=== PATIENT | male | born 1950 | race Caucasian/White ===

== ENCOUNTER → 2018-12-26 | Outpatient (CLI) | payer MEDICARE | LOC: LABWHC1 13:43 | PROVIDERS: ATTEND Neurological Surgery | DX: Z01.812 Encounter for preprocedural laboratory examination (principal); M48.00 Spinal stenosis, site unspecified; M54.32 Sciatica, left side; M54.31 Sciatica, right side; M21.372 Foot drop, left foot; M21.371 Foot drop, right foot; M19.90 Unspecified osteoarthritis, unspecified site; M54.9 Dorsalgia, unspecified; H26.9 Unspecified cataract; G47.30 Sleep apnea, unspecified; E78.00 Pure hypercholesterolemia, unspecified; I10 Essential (primary) hypertension; E11.40 Type 2 diabetes mellitus with diabetic neuropathy, unspecified; Z79.01 Long term (current) use of anticoagulants | CPT/HCPCS: 36415; 86850; 86900; 86901 ==

== ENCOUNTER → 2020-09-26 | Outpatient (CLI) | payer MEDICARE ==
--- NOTE | 2020-09-26 08:09 | US ---
EXAMINATION TYPE: US carotid duplex BILAT DATE OF EXAM: 09/26/2020 COMPARISON: NONE CLINICAL HISTORY: R27.0 ataxia; I48.0 approximal atrial fibrillation. Nonsmoker EXAM MEASUREMENTS: RIGHT: Peak Systolic Velocity (PSV) cm/sec ----- Right CCA: 47.8 ----- Right ICA: 69.0 ----- Right ECA: 54.0 ICA/CCA ratio: 1.4 RIGHT: End Diastole cm/sec ----- Right CCA: 9.9 ----- Right ICA: 27.3 ----- Right ECA: 14.3 LEFT: Peak Systolic Velocity (PSV) cm/sec ----- Left CCA: 67.1 ----- Left ICA: 67.1 ----- Left ECA: 55.9 ICA/CCA ratio: 1.0 LEFT: End Diastole cm/sec ----- Left CCA: 21.7 ----- Left ICA: 24.9 ----- Left ECA: 11.8 VERTEBRALS (direction of flow): Right Vertebral: Antegrade Left Vertebral: Antegrade Rhythm: Normal Andrade scale images show mild peripheral plaque at carotid bulb level. Velocity measurements and ratios remain within normal limits in the visualized portion of both international manager al carotid arteries. IMPRESSION: No hemodynamically significant stenosis seen in either internal carotid artery. Criteria for Assigning % of Stenosis / Diameter reduction (Estimation based on the indirect measurements of the internal carotid artery velocities (ICA PSV). 1. Normal (no stenosis)=ICA PSV < 125 cm/s: ratio < 2.0: ICA EDV<40 cm/s. 2. Less than 50% stenosis=ICA PSV < 125 cm/s: ratio < 2.0: ICA EDV<40 cm/s. 3. 50 to 69% stenosis=ICA PSV of 125 to 230 cm/s: ration 2.0 ? 4.0: ICA EDV 40-100 cm/s. 4. Greater than 70% stenosis to near occlusion= ICA PSV > 230 cm/s: ratio > 4.0: ICA EDV > 100 cm/s. 5. Near occlusion= ICA PSV velocities may be low or undetectable: variable ratio and ICA EDV. 6. Total occlusion=unable to detect flow.
--- NOTE | 2020-09-26 10:00 | ECHOF ---
Referral Reason:I48.0 aproximal atrial fibrillation MEASUREMENTS -------- HEIGHT: 175.3 cm WEIGHT: 95.7 kg BP: RVIDd: 2.5 cm (< 3.3) IVSd: 1.1 cm (0.6 - 1.1) LVIDd: 4.7 cm (3.9 - 5.3) LVPWd: 1.1 cm (0.6 - 1.1) IVSs: 1.6 cm LVIDs: 2.8 cm LVPWs: 1.9 cm LAESV Index (A-L): 27.66 ml/m Ao Diam: 2.6 cm (2.0 - 3.7) AV Cusp: 1.8 cm (1.5 - 2.6) LA Diam: 3.9 cm (2.7 - 3.8) MV EXCURSION: 17.297 mm (> 18.000) MV EF SLOPE: 138 mm/s (70 - 150) EPSS: 0.8 cm MV E Sawyer: 0.63 m/s MV DecT: 169 ms MV A Sawyer: 0.70 m/s MV E/A Ratio: 0.90 RAP: 5.00 mmHg RVSP: 24.03 mmHg TAPSE: 27.87 mm FINDINGS -------- This was a technically good study. The left ventricular size is normal. Left ventricular wall thickness is normal. Overall left vent ricular systolic function is normal with, an EF between 55 - 60 %. The diastolic filling pattern is normal for the age of the patient 8.87. The right ventricle is normal in size. The left atrial size is normal. Normal LA size by volume 22+/-6 ml/m2. The right atrial size is normal. Interatrial and interventricular septum intact. The aortic valve is trileaflet and appears structurally normal. The mitral valve leaflets are mildly thickened. Mild mitral regurgitation is present. The tricuspid valve appears structurally normal. Mild tricuspid regurgitation present. Right vent ricular systolic pressure is normal at < 35 mmHg. Trace/mild (physiologic) pulmonic regurgitation. The aortic root size is normal. Normal inferior vena cava with normal inspiratory collapse consistent with estimated right atrial pre ssure of 5 mmHg. There is no pericardial effusion. CONCLUSIONS -------- 1. The left ventricular size is normal. 2. Left ventricular wall thickness is normal. 3. Overall left ventricular systolic function is normal with, an EF between 55 - 60 %. 4. The diastolic filling pattern is normal for the age of the patient 8.87 5. The mitral valve leaflets are mildly thickened. 6. Mild mitral regurgitation is present. 7. Mild tricuspid regurgitation present. 8. Trace/mild (physiologic) pulmonic regurgitation. 9. There is no pericardial effusion. BIOMEDICAL TECHNICIAN: Arlet Villareal RDCS
--- NOTE | 2020-09-26 11:12 | CT ---
EXAMINATION TYPE: CT brain wo/w con DATE OF EXAM: 09/26/2020 COMPARISON: None INDICATION: Ataxia, Proximal atrial fibrillation DLP: 2216.80 mGycm, Automated exposure control for dose reduction was used. CONTRAST: None CT of the brain is performed utilizing 3 mm thick sections through the posterior fossa and 3 mm thick sections through the remaining calvarium. Study is performed within 24 hours of arrival to the hosp [facility]. No abnormal hyperdensity is present to suggest an acute intracranial hemorrhage. No mass lesion is evident. No acute infarcts are evident. Minimal periventricular white matter hypodensity is present, likely on the basis of chronic white matter ischemic changes. Ventricles and sulci are appropriate for the patient age. Paranasal sinuses and mastoid air cells within the [id number] are clear. No abnormal enhancement is evident. IMPRESSIONS: 1. Normal pre and postcontrast CT Brain
== END | disposition home or self-care (01) ==
LOC: RADUSWWP 07:09
PROVIDERS: ATTEND Family Medicine
DX: I08.1 Rheumatic disorders of both mitral and tricuspid valves (principal); R27.0 Ataxia, unspecified
CPT/HCPCS: 93306; 82565; 84520; 93880; 70470; 36415; Q9967

== ENCOUNTER 2020-10-14 11:52 | Emergency (ER) | payer MEDICARE ==
[2020-10-14 12:03] VITALS: RESP 18; TEMP 98.6
--- NOTE | 2020-10-14 12:34 | XR ---
EXAMINATION TYPE: XR hand complete RT DATE OF EXAM: 10/14/2020 CLINICAL HISTORY: Pain after injury. TECHNIQUE: Frontal, lateral and oblique images of the right hand are obtained. COMPARISON: None. FINDINGS: There is no acute fracture/dislocation evident in the right hand. Moderate to severe multi level spurring and joint space loss involving PIP and DIP joints of several fingers along with MCP kenji ints. Some subluxation at the second and third DIP joints. Scattered subchondral cystic change. Mild to moderate diffuse soft tissue swelling with more focal moderate soft tissue swelling at some of the joint spaces of the fingers. There is subchondral cystic change and bony formation in the ulnar styl oid. There is marked narrowing possible ossific fusion of the capitate and hamate bones. There is mar ked narrowing of the scaphoid capitate articulation with joint space sclerosis. Moderate to severe sp urring and narrowing base of first metacarpal. Vascular calcification at the wrist level is present. IMPRESSION: There is no acute fracture or dislocation in the right hand.
--- NOTE | 2020-10-14 12:58 | ED ---
Upper Extremity HPI - General Chief Complaint: Extremity Injury, Upper Stated Complaint: hand injury Source: patient Mode of arrival: ambulatory Limitations: no limitations - History of Present Illness Initial Comments: 70-year-old male presenting today for chief complaint of hand injury. pt states he was hit by a skeet. 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 it tried to unjam a machine but it threw the skeet into his right side of chin. he states it bounced and hit his thumb. states noticed a small bump where it hit. denies redness, swelling. states he never noticed area before. denies lmitation in rom or sensation. pt denies throat, eye or other facial injuries. patient denies additional complaints. states he came for xr of thumb. - Related Data Allergies Allergy/AdvReac Type Severity Reaction Status Date / Time Penicillins Allergy Unknown Verified 10/14/20 12:03 Childhood Review of Systems ROS Statement: Those systems with pertinent positive or pertinent negative responses have been documented in the HPI. ROS Other: All systems not noted in ROS Statement are negative. Past Medical History Past Medical History: Diabetes Mellitus, Deep Vein Thrombosis (DVT), Hyperlipid emia, Hypertension History of Any Multi-Drug Resistant Organisms: None Reported Past Surgical History: Adenoidectomy, Appendectomy, Heart Catheterization, Tonsillectomy Additional Past Surgical History / Comment(s): laminectomy Past Psychological History: No Psychological Hx Reported Smoking Status: Never smoker Past Alcohol Use History: None Reported Past Drug Use History: None Reported General Exam - General Exam Comments Initial Comments: General: The patient is awake and alert, in no distress, and does not appear acutely ill. Eye: Pupils are equal, round and reactive to light, extra-ocular movements are intact. No nystagmus. There is normal conjunctiva bilaterally. No signs of icterus. Ears, nose, mouth and throat: There are moist mucous membranes and no oral lesions. Neck: The neck is supple, there is no tenderness or JVD. Cardiovascular: There is a regular rate and rhythm. No murmur, rub or gallop is appreciated. Respiratory: Lungs are clear to auscultation, respirations are non-labored, breath sounds are equal. No wheezes, stridor, rales, or rhonchi. Gastrointestinal: [Soft, non-distended, non-tender abdomen without masses or organomegaly noted. There is no rebound or guarding present. Musculoskeletal: No bruising of thumb, no swellinkg, small pea size hard lesion of thumb near MCP joint. Normal ROM, no tenderness. Strength 5/5. Sensation intact. Radial pulses equal bilaterally 2+. Neurological: A&O x 3. CN II-XII intact grossly, There are no obvious motor or sensory deficits. Coordination appears grossly intact. Speech is normal. Skin: Skin is warm and dry and no rashes. ecchymosis of the right side of chin. no laceration, no crepitus. Psychiatric: Cooperative, appropriate mood & affect, normal judgment. Limitations: no limitations Course Vital Signs 10/14/20 10/14/20 11:58 13:03 Temperature 98.6 F 98.6 F Pulse Rate 70 65 Respiratory 18 18 Rate Blood Pressure 135/70 138/72 O2 Sat by Pulse 99 98 Oximetry Medical Decision Making - Medical Decision Making XR (-). no fracture. refused imaging of chin. no lacerations. patient has no additional complaints. no snuffbox tenderness. pt discharged appearing well. Disposition Clinical Impression: Right hand pain, Traumatic ecchymosis of chin Disposition: HOME SELF-CARE Condition: Good Instructions (If sedation given, give patient instructions): Contusion in Adults (ED), Bone Bruise (ED) Additional Instructions: Please use medication as discussed. Please follow-up with family doctor in the next 2 days of symptoms have not improved. Please return to emergency room if the symptoms increase or worsen or for any other concerns. Is patient prescribed a controlled substance at d/c from ED?: No Referrals: Amarjit Alvarado DO [Primary Care Provider] - 1-2 days Time of Disposition: 12:56
[2020-10-14 13:04] VITALS: BP 138/72; PULSE 65
== END 2020-10-14 13:04 | disposition home or self-care (01) ==
LOC: EC 11:52
DX: M79.641 Pain in right hand (principal); S00.83XA Contusion of other part of head, initial encounter; L98.9 Disorder of the skin and subcutaneous tissue, unspecified; Z88.0 Allergy status to penicillin; Z90.49 Acquired absence of other specified parts of digestive tract; Z90.89 Acquired absence of other organs; Z95.5 Presence of coronary angioplasty implant and graft; W61.92XA Struck by other birds, initial encounter
CPT/HCPCS: 99283

== ENCOUNTER → 2020-12-25 | Outpatient (CLI) | payer MEDICARE ==
--- NOTE | 2020-12-26 07:19 | MR ---
EXAMINATION TYPE: MR lumbar spine wo/w con DATE OF EXAM: 12/25/2020 COMPARISON: NONE at this institution. HISTORY: LBP, RLE radiculopathy, prior surgery TECHNIQUE: Multiplanar, multisequence images of the lumbar spine is performed without and with IV contrast, util izing 9 mL intravenous Gadavist FINDINGS: Sagittal images of the lumbar spine show vertebral body heights to appear satisfactory. The re is grade 1 retrolisthesis L1 on L2, L2 on L3, L3 and L4. Subtle Grade 1 anterolisthesis L5 on S1. Multilevel disc desiccation with multilevel disc space narrowing. Moderate disc space narrowing L3-L4 through the L5-S1 levels . Advanced disc space narrowing L2-L3 level with heterogeneous metastatic e ndplate changes. Moderate multilevel anterior spurring greatest upper lumbar levels. The conus medull ash is normal in position and signal ending mid L1 level. Postsurgical change posteriorly from mid L 2 through superior S1 levels. Hemangioma involving L3 vertebra right aspect sagittal image 11 noted. Axial images at T12-L1 level show moderate broad disc bulge and mild facet arthropathy bilaterally. M inimal effacement anterior thecal sac. Patent bilateral neural foramina. Axial images at L1-L2 level show spondylolisthesis with [id number] facet degenerative changes a nd ligamentum flavum hypertrophy mildly effacing posterior lateral thecal sac. There is moderate broa d disc bulge mildly effacing the anterior thecal sac. Patent bilateral neural foramina. Axial images at L2-L3 level show spondylolisthesis with moderate facet degenerative changes bilateral ly. There is effacement of the right lateral thecal sac. There is effacement of anterior thecal sac f rom posterior bony projection. Posterior spinous process resection. Patent bilateral neural foramina. Suspect left-sided laminectomy defect with enhancing posterior scar tissue. Axial images at L3-L4 level show moderate to severe broad-based disc bulge and moderate to severe rig ht-sided facet arthropathy. There is spinous process resection and left-sided laminectomy defect with enhancing scar tissue. Right-sided lateral and posterior spinal canal effacement. Patent bilateral n eural foramina. Axial images at the L4-L5 level show left-sided laminectomy defect and spinous process resection but there is advanced facet arthropathy and moderate to advanced broad disc bulge. The most Prominent spi nal canal effacement or stenosis seen at this level axial image 8. Moderate bilateral neural foramina l narrowing noted. Axial images at the L5-S1 level show moderate to advanced facet arthropathy bilaterally. There is mil d broad disc bulge. There is mild bilateral neural foraminal narrowing. Spinal canal preserved. An exophytic 1.9 cm T2 hyperintense lesion posterior right kidney axial image 24 simple thin-walled c yst. IMPRESSION: Posterior postsurgical changes mid to lower lumbar spine. Multilevel spondylolisthesis an d degenerative changes as detailed above. Attention to the L4-L5 level where most prominent spinal ca nal effacement or stenosis is noted.
== END ==
LOC: RADMRIMAIN 18:33
PROVIDERS: ATTEND Family Medicine
DX: M47.26 Other spondylosis with radiculopathy, lumbar region (principal)
CPT/HCPCS: 72158

== ENCOUNTER → 2021-02-19 | Outpatient (CLI) | payer MEDICARE ==
[2021-02-19 11:05] LABS: INR 1.1 (<1.2); Partial Thromboplastin Time 27.4 sec (22.0-30.0); Prothrombin Time 11.5 sec (9.0-12.0)
[2021-02-19 11:08] LABS: Appearance,Urine Clear (Clear); Bilirubin,Urine Negative (Negative); Blood,Urine Negative (Negative); Color,Urine Yellow; Glucose,Urine (UA) 4+ (Negative); Ketones,Urine Negative (Negative); Leukocyte Esterase,Urine Negative (Negative); Nitrite,Urine Negative (Negative); PH, Urine 6.5 (5.0-8.0); Protein,Urine Negative (Negative); Specific Gravity,Urine 1.025 (1.001-1.035)
[2021-02-19 20:10] LABS: Basophils # (A) 0.05 X 10*3/uL (0.00-0.10); Basophils % (A) 0.7 %; Eosinophils # (A) 0.25 X 10*3/uL (0.04-0.35); Eosinophils % (A) 3.6 %; HCT 41.7 % (39.6-50.0); HGB 13.8 g/dL (13.0-17.0); Lymphocytes % (A) 25.6 %; MCH 33.2 pg (27.0-32.0); MCHC 33.1 g/dL (32.0-37.0); MCV 100.2 fL (80.0-97.0); Mean Platelet Volume 9.2 fL (9.5-12.2); Monocytes # (A) 0.53 X 10*3/uL (0.20-1.00); Monocytes % (A) 7.5 %; Neutrophils # (A) 4.37 X 10*3/uL (1.80-7.70); Neutrophils % (A) 62.3 %; Platelet Count 217 X 10*3/uL (140-440); RBC 4.16 X 10*6/uL (4.40-5.60); RDW 12.8 % (11.5-14.5); WBC 7.02 X 10*3/uL (4.50-10.00)
[2021-02-19 23:43] LABS: Hemoglobin A1C 5.1 % (4.0-6.0)
[2021-02-20 04:28] LABS: African American GFR (CKD) 77.3 (60.0-200.0); Albumin 4.4 g/dL (3.80-4.90); Albumin/Globulin Ratio 2.44 (1.60-3.17); Anion Gap 8.3 mmol/L (4.00-12.00); BUN/Creat Ratio 16.36 Ratio (12.00-20.00); Calcium 9.8 mg/dL (8.7-10.3); Carbon Dioxide 33.7 mmol/L (21.6-31.8); Globulin 1.8 g/dL (1.6-3.3); Non-African American GFR(CKD) 66.7 (60.0-200.0); Potassium 4.3 mmol/L (3.5-5.5); Total Bilirubin 1.1 mg/dL (0.3-1.2); Total Protein 6.2 g/dL (6.2-8.2)
== END | disposition home or self-care (01) ==
LOC: LABWHC1 10:10
PROVIDERS: ATTEND Neurological Surgery
DX: M54.16 Radiculopathy, lumbar region (principal)
CPT/HCPCS: 36415; 80053; 81003; 83036; 84134; 85025; 85610; 85730

== ENCOUNTER → 2022-08-28 | Outpatient (CLI) | payer MEDICARE ==
--- NOTE | 2022-08-28 13:35 | XR ---
EXAMINATION TYPE: XR chest 2V DATE OF EXAM: 08/28/2022 COMPARISON: NONE TECHNIQUE: PA and lateral views submitted. HISTORY: Shortness of breath FINDINGS: The lungs are clear and there is no pneumothorax, pleural effusion, or focal pneumonia. Heart size normal. No overt failure. Hypertrophic and degenerative changes of the spine. IMPRESSION: 1. No acute process.
== END | disposition home or self-care (01) ==
LOC: RADXRMAIN 13:19
PROVIDERS: ATTEND Family Medicine
DX: R06.02 Shortness of breath (principal)
CPT/HCPCS: 71046

== ENCOUNTER → 2022-10-29 | Outpatient (CLI) | payer MEDICARE ==
--- NOTE | 2022-10-29 18:12 | CA ---
Exercise Stress Test Report Name: Darrius Chamorro Exam Date: 10/29/2022 10:57 Exam Location: [facility] Stress Ht (in): 69 Wt (lb): 195 BSA: 2.04 Ordering Phys: Amarjit Alvarado DO Referring Phys: Amarjit Alvarado DO Technologist: Hernando Ribeiro Age: 72 Gender: M : 1950 Procedure CPT: Indications: R06.02 SHORTNESS OF BREATH ICD-10 Codes: Patient History: DIFFICULTY IN BREATHING, HTN, DIABETES, ELEVATED CHOLESTEROL LEVELS, CARDIAC CATH Medications: METFORMIN, HZTZ, WELBUTRIN, ZOLOFT, ZIAC, OMEPRAZOLE, ZOCOR, XARELTO, VIT D, TRAMADOL, STEGLATRO Meds past 24 hrs: Pretest Chest Pain: STRESS TEST Kuldip Protocol Exercise Duration (min:sec): 06:[address] Depressions (mm): Angina Score: Irwin Score: Resting HR (bpm): 73 Peak HR (bpm): 125 Resting BP (mmHg): 130 / 74 Peak BP (mmHg): 189 / 71 MPHR: 147 Target HR: 125 % MPHR: 85 METS: 9.2 Total Dose: Peak Dose: Atropine: Double Product: 84544 BP Response: Stress Termination: Stress Symptoms: Stress Summary: ECG ANALYSIS Resting ECG: Stress ECG: CONCLUSIONS Baseline heart is 60 beats a minute, Baseline blood pressure 130/74 maneuvers mercury The center EKG shows sinus rhythm normal NC narrow QRS Patient excisable protocol for 6 minutes 18 seconds achieving a peak heart rate of 125 beats a minute. Peak blood pressure 189/71 mmHg Occasional PVCs noted No ECG evidence for ischemia Impression average exercise capacity No ECG evidence for ischemia Dr. Ross Waterman MD (Electronically Signed) Final Date: 29 October 2022 18:11
== END | disposition home or self-care (01) ==
LOC: RADNMMAIN 10:32
PROVIDERS: ATTEND Family Medicine
DX: R06.02 Shortness of breath (principal)
CPT/HCPCS: 93017

== ENCOUNTER → 2023-09-08 | Outpatient (CLI) | payer MEDICARE ==
--- NOTE | 2023-09-08 09:58 | CA ---
Transthoracic Echo Report Name: Darrius Chamorro Age: 73 Gender: M : 1950 Exam Date: 09/08/2023 08:29 Exam Location: [facility] Echo Ht (in): 69 Wt (lb): 190 Ordering Physician: Amarjit Alvarado DO Attending/Referring Phys: Mandrel Maker Peri Vallecillo [facility] Procedure CPT: Indications: R07.89 other chest pain Cardiac Hx: Technical Quality: Fair Contrast 1: Total Dose (mL): Contrast 2: Total Dose (mL): MEASUREMENTS (Male / Female) Normal Values 2D ECHO LV Diastolic Diameter PLAX 4.6 cm 4.2 - 5.9 / 3.9 - 5.3 cm LV Systolic Diameter PLAX 3.1 cm IVS Diastolic Thickness 1.0 cm 0.6 - 1.0 / 0.6 - 0.9 cm LVPW Diastolic Thickness 0.9 cm 0.6 - 1.0 / 0.6 - 0.9 cm LV Relative Wall Thickness 0.4 LV Diastolic Volume MOD BP 91.1 cm??? 67 - 155 / 56 - 104 cm??? LV Systolic Volume MOD BP 51.4 cm??? 22 - 58 / 19 - 49 cm??? LV Ejection Fraction MOD BP 43.6 % >= 55 % LV Cardiac Index MOD BP 1249.1 cm???/min???m??? LV Diastolic Volume MOD 4C 94.1 cm??? LV Systolic Volume MOD 4C 49.5 cm??? LV Ejection Fraction MOD 4C 47.4 % LV Cardiac Index MOD 4C 1404.4 cm???/min???m??? LV Diastolic Length 4C 8.0 cm LV Systolic Length 4C 6.6 cm LV Diastolic Volume MOD 2C 86.8 cm??? LV Systolic Volume MOD 2C 52.4 cm??? LV Ejection Fraction MOD 2C 39.6 % LV Cardiac Index MOD 2C 1080.2 cm???/min???m??? LV Diastolic Length 2C 7.8 cm LV Systolic Length 2C 6.9 cm Ascending Aorta Diameter 3.5 cm M-MODE Aortic Root Diameter MM 3.0 cm LA Systolic Diameter MM 4.1 cm LA Ao Ratio MM 1.4 AV Cusp Separation MM 2.2 cm DOPPLER AV Peak Velocity 127.0 cm/s AV Peak Gradient 6.4 mmHg AV Mean Velocity 93.7 cm/s AV Mean Gradient 3.8 mmHg AV Velocity Time Integral 29.0 cm LVOT Peak Velocity 77.5 cm/s LVOT Peak Gradient 2.4 mmHg LVOT Velocity Time Integral 19.7 cm Mitral E Point Velocity 53.3 cm/s Mitral A Point Velocity 70.6 cm/s Mitral E to A Ratio 0.8 MV Deceleration Time 219.1 ms LV E' Lateral Velocity 8.4 cm/s Mitral E to LV E' Lateral Ratio 6.3 LV E' Septal Velocity 7.2 cm/s Mitral E to LV E' Septal Ratio 7.4 TR Peak Velocity 227.7 cm/s TR Peak Gradient 20.7 mmHg Right Atrial Pressure 3.0 mmHg Pulmonary Artery Systolic Pressu 23.7 mmHg Right Ventricular Systolic Press 23.7 mmHg FINDINGS Left Ventricle Left ventricular wall thickness normal. Left ventricular cavity size normal. Left ventricular ejection fraction is estimated at 40-45%. Moderately decreased left ventricular ejection fraction. Anterolateral wall appears hypokinetic. Right Ventricle Moderate right ventricular dilatation. Right Atrium Moderate right atrial dilatation. Left Atrium Moderate left atrial dilatation. Mitral Valve Mild mitral valve prolapse. Mild-moderate mitral regurgitation. Aortic Valve Trileaflet aortic valve. No aortic valve stenosis or regurgitation. Tricuspid Valve Structurally normal tricuspid valve. Trace tricuspid regurgitation. Pulmonic Valve Structurally normal pulmonic valve. Moderate pulmonic regurgitation. Pericardium No pericardial effusion. Aorta Normal size aortic root and proximal ascending aorta. CONCLUSIONS Mild LV systolic dysfunction with an ejection fraction of 40-45% Anteroseptal and anterolateral wall appear hypokinetic Mild to moderate mitral regurgitation Previewed by: Dr. Bg Osman MD (Electronically Signed) Final Date: 08 September 2023 09:57
--- NOTE | 2023-09-08 11:49 | CA ---
Exercise Stress Test Report Name: Darrius Chamorro Exam Date: 09/08/2023 09:02 Exam Location: [place] Stress Ht (in): 69 Wt (lb): 190 BSA: 2.02 Ordering Phys: Amarjit Alvarado DO Referring Phys: ALVARADO Technologist: Amarjit Yo Age: 73 Gender: M : 1950 Procedure CPT: Indications: R07.89 other chest pain ICD-10 Codes: Patient History: Shortness of breath Medications: Meds past 24 hrs: Pretest Chest Pain: STRESS TEST Kuldip Protocol Exercise Duration (min:sec): 06:[address] Depressions (mm): Angina Score: Irwin Score: Resting HR (bpm): 62 Peak HR (bpm): 125 Resting BP (mmHg): 132 / 69 Peak BP (mmHg): 183 / 72 MPHR: 146 Target HR: 124 % MPHR: 86 METS: 7.4 Total Dose: Peak Dose: Atropine: Double Product: 31538 BP Response: Stress Termination: Max exertion. Stress Symptoms: No chest pain or symptoms Stress Summary: ECG ANALYSIS Resting ECG: Normal sinus rhythm normal axis normal intervals Stress ECG: Patient exercised on Kuldip protocol for 6 minutes achieving 86% of predicted maximal heart rate without chest pain or diagnostic ST segment depression CONCLUSIONS Average exercise tolerance Negative stress test by EKG criteria Dr. Bg Osman MD (Electronically Signed) Final Date: 08 September 2023 11:48
== END | disposition home or self-care (01) ==
LOC: RADECHMAIN 08:08
PROVIDERS: ATTEND Family Medicine
DX: I34.0 Nonrheumatic mitral (valve) insufficiency (principal); I51.89 Other ill-defined heart diseases
CPT/HCPCS: 93017; 93306

== ENCOUNTER → 2023-12-28 | Outpatient (CLI) | payer MEDICARE ==
--- NOTE | 2023-12-29 05:20 | MR ---
EXAMINATION TYPE: MR shoulder LT wo con DATE OF EXAM: 12/28/2023 COMPARISON: None. HISTORY: Left shoulder pain for a few months with difficulty raising arm overhead. TECHNIQUE: Multiplanar, multisequence imaging of the left shoulder is performed without contrast. FINDINGS: Rotator Cuff: Full-thickness retracted tear of the supraspinatus tendon to the level of the distal cl avicle. Full thickness stump or traction of the infraspinatus tendon coronal image 23 more proximal t o the distal clavicle. Subscapularis tendon has wavy contour and surrounding fluid. Retracted tear is suspected as the long head of biceps is medial to the groove. Mild to moderate generalized muscular atrophy of the rotator cuff muscles. Acromioclavicular Joint: Inferior margin of the acromion is 8 mm superior displacement relative to th e inferior margin of the distal clavicle. There is moderate to severe narrowing with subchondral cyst ic change at this level. Mild spurring is seen. Glenohumeral Joint: High positioned humeral head suggesting rotator cuff instability is noted. Small- to-moderate sized joint effusion is present. Marked narrowing superiorly is noted. Labrum: Blunting superior labrum consistent with tear. Biceps Tendon: The long head of biceps is in normal location within bicipital groove. Bone marrow signal: Subchondral cystic change at the acromioclavicular joint. Other: No additional significant abnormality is appreciated. IMPRESSION: 1. Full-thickness retracted tears of supraspinatus and infraspinatus tendons. Likely full-thickness r etracted tear of subscapularis tendon. [id number] rotator cuff muscular atrophy. High positione d humeral head suggesting underlying instability. Advanced degenerative changes glenohumeral and acro mioclavicular joint. AC joint subluxation. Dislocated long head of biceps tendon and probable tear.
== END | disposition home or self-care (01) ==
LOC: RADMRIMAIN 20:00
PROVIDERS: ATTEND Orthopaedic Surgery
DX: M75.122 Complete rotator cuff tear or rupture of left shoulder, not specified as traumatic (principal); S43.005A Unspecified dislocation of left shoulder joint, initial encounter; M62.512 Muscle wasting and atrophy, not elsewhere classified, left shoulder; M19.012 Primary osteoarthritis, left shoulder; X58.XXXA Exposure to other specified factors, initial encounter

== ENCOUNTER → 2024-02-18 | Outpatient (CLI) | payer MEDICARE | END | disposition home or self-care (01) | LOC: LABPAT 11:46 | PROVIDERS: ATTEND Orthopaedic Surgery | DX: Z01.812 Encounter for preprocedural laboratory examination (principal); M75.122 Complete rotator cuff tear or rupture of left shoulder, not specified as traumatic; M12.812 Other specific arthropathies, not elsewhere classified, left shoulder; Z22.322 Carrier or suspected carrier of Methicillin resistant Staphylococcus aureus | CPT/HCPCS: 87070 ==

== ENCOUNTER → 2024-02-23 | Outpatient (CLI) | payer MEDICARE ==
[2024-02-23 13:41] LABS: African American GFR (CKD) 75 (>60 ml/min/1.73 sqM); Blood Urea Nitrogen 28 mg/dL (9-20); Non-African American GFR(CKD) 65 (>60 ml/min/1.73 sqM)
--- NOTE | 2024-02-23 14:55 | CT ---
EXAMINATION TYPE: CT abdomen pelvis w con DATE OF EXAM: 02/23/2024 COMPARISON: None HISTORY: abdominal pain, weight loss CT DLP: 1066.4 mGycm CONTRAST: CT scan of the abdomen and pelvis is performed with Oral Contrast and with IV Contrast, patient injec seven with 100 mL of Isovue 300. FINDINGS: LUNG BASES-: No visible nodule. No infiltrate. LIVER/GB: Calcified cholelithiasis. Mild hepatic steatosis. No space occupying hepatic lesion. Biliar y tree is of normal caliber. PANCREAS: No inflammation. No distinct mass. SPLEEN: No splenic enlargement. No lesion seen. ADRENALS: No nodule. No thickening. KIDNEYS/BLADDER: No hydronephrosis. No nephrolithiasis. 1.7 cm exophytic lesion posterior lower jalen e right kidney compatible with simple cysts. Urinary bladder grossly unremarkable. BOWEL: Normal appendix. Normal bowel caliber. No inflammation. GENITAL ORGANS: No gross abnormality. LYMPH NODES: No greater than 1cm abdominal or pelvic lymph nodes are appreciated. AORTA: No significant abnormality. OSSEOUS STRUCTURES: No significant abnormality is seen. OTHER: No significant additional abnormality is seen. IMPRESSION: 1. No significant abnormality to account for the patient's symptoms and abnormal weight loss. Correla te clinically. 2. Calcified cholelithiasis. 3. Mild hepatic steatosis.
[2024-02-23 19:12] LABS: Basophils # (A) 0.05 X 10*3/uL (0.00-0.10); Basophils % (A) 0.8 %; Eosinophils # (A) 0.51 X 10*3/uL (0.04-0.35); Eosinophils % (A) 7.8 %; HCT 35.2 % (39.6-50.0); HGB 12.1 g/dL (13.0-17.0); Lymphocytes % (A) 19.9 %; MCH 33.4 pg (27.0-32.0); MCHC 34.4 g/dL (32.0-37.0); MCV 97.2 FL (80.0-97.0); Mean Platelet Volume 8.8 FL (9.5-12.2); Monocytes # (A) 0.43 X 10*3/uL (0.20-1.00); Monocytes % (A) 6.6 %; NRBC Per 100 WBC 0 X 10*3/uL (0.00-0.01); Neutrophils # (A) 4.19 X 10*3/uL (1.80-7.70); Neutrophils % (A) 64.3 %; Platelet Count 200 X 10*3/uL (140-440); RBC 3.62 X 10*6/uL (4.40-5.60); RDW 13.2 % (11.5-14.5); WBC 6.52 X 10*3/uL (4.50-10.00)
[2024-02-23 23:56] LABS: % Iron Saturation 26.07 (15.00-50.00); Ferritin 55.4 ng/mL (22.0-322.0)
== END | disposition home or self-care (01) ==
LOC: RADCTMAIN 11:59
PROVIDERS: ATTEND Internal Medicine Gastroenterology
DX: K80.20 Calculus of gallbladder without cholecystitis without obstruction (principal); K76.0 Fatty (change of) liver, not elsewhere classified; R63.4 Abnormal weight loss
CPT/HCPCS: 82607; 82728; 82565; 82746; 83540; 83550; 84520; 85025; 74177; 36415; Q9967

== ENCOUNTER 2024-02-25 07:44 | Day surgery (SDC) | payer MEDICARE ==
[2024-02-21 15:03] VITALS: BMI 26.6
--- NOTE | 2024-02-24 08:33 | P.HPOR ---
History of Present Illness H&P Date: 02/24/24 Chief Complaint: Left shoulder pain and weakness The patient is a 73-year-old [id number] retired gentleman who presents with persistent/progressive left shoulder pain and weakness for the past year. He is having and with any attempted overhead use and at night. He notes aggressive weakness and inability to raise his arm over his head. He tried conservative measures with medications, home exercises, and injections. He notes daily pain that limits him. Review of Systems As per HPI Past Medical History Past Medical History: Diabetes Mellitus, Deep Vein Thrombosis (DVT), Hyperlipidemia, Hypertension History of Any Multi-Drug Resistant Organisms: None Reported Past Surgical History: Adenoidectomy, Appendectomy, Back Surgery, Heart Catheter ization, Tonsillectomy Additional Past Surgical History / Comment(s): laminectomy Past Anesthesia/Blood Transfusion Reactions: No Reported Reaction Past Psychological History: Anxiety, Depression Smoking Status: Never smoker Past Alcohol Use History: None Reported Past Drug Use History: None Reported - Past Family History Mother Family Medical History: No Reported History Medications and Allergies Home Medications Medication Instructions Recorded Confirmed Type Bisoprolol-Hctz 2.5-6.25 mg [Ziac 1 tab PO DAILY 02/21/24 02/21/24 History 2.5-6.25 MG] Brexpiprazole [Rexulti] 0.5 mg PO DAILY 02/21/24 02/21/24 History Cholecalciferol [Vitamin D3 (25 75 mcg PO Q7D 02/21/24 02/21/24 History Mcg = 1000 Iu)] Meloxicam [Mobic] 0 mg PO DIRECTED PRN 02/21/24 02/21/24 History Omeprazole [PriLOSEC] 20 mg PO AC-BRKFST 02/21/24 02/21/24 History Rivaroxaban [Xarelto] 20 mg PO DAILY 02/21/24 02/21/24 History Sertraline [Zoloft] 150 mg PO DAILY 02/21/24 02/21/24 History Simvastatin [Zocor] 20 mg PO HS 02/21/24 02/21/24 History buPROPion XL [Wellbutrin XL] 300 mg PO DAILY 02/21/24 02/21/24 History hydroCHLOROthiazide 25 mg PO DAILY 02/21/24 02/21/24 History metFORMIN HCL 500 mg PO BID 02/21/24 02/21/24 History rOPINIRole HCL [Requip] 3 mg PO HS 02/21/24 02/21/24 History Allergies Allergy/AdvReac Type Severity Reaction Status Date / Time Penicillins Allergy Unknown Verified 02/21/24 14:27 Childhood Physical Examination - Shoulder left Appearance: effusion Tenderness with palpation: anterior, superior, bicipital groove Pain: with abduction, with forward flexion ROM: forward flexion: 100 degrees ROM: internal rotation: lower lumbar ROM: external rotation: 10 degrees Strength: abduction: 3/5 Strength: external rotation: 3/5 Tests: internal impingement tests: positive, external impingment tests: positive Results The patient is a well-nourished male aproximately 5 foot 9, 180 pounds of mesomorphic habitus. HEENT exam is nonfocal, neck supple. He's tender about the left shoulder anterior subacromial space. Moderate crepitus is noted. Fleming, Neer sign, and speed tests are positive. Passive forward elevation is 145. His distal neurovascular exam appears intact in the left upper extremity. - Diagnostic results Shoulder MRI: image reviewed (MRI of the left shoulder shows evidence of a massive rotator cuff tear with significant retraction and muscular atrophy. Significant glenohumeral joint degenerative changes are noted.) Assessment and Plan Assessment: Left rotator cuff arthropathy History of DVTs Plan: I talked to the patient at length regarding his condition along with treatment options. At this point he is quite symptomatic and limited because of pain and weakness related to his left rotator cuff arthropathy. After a thorough discussion he opts to proceed with surgery. We'll plan to proceed with left reverse total shoulder arthroplasty. We will reinstitute his Xarelto postoperatively. Risks and benefits were discussed at length in layman's terms.
[~2024-02-25 07:44] MED LIST: HYDROmorphone 0.5 MG/0.5 ML SYRINGE IVP PRN; TRANEXAMIC 1,000 MG/100ML-NACL 1,000 MG in SALINE 1 100ML.BAG IVPB PRN
[2024-02-25] MEDS: ACETAMINOPHEN TAB 500 MG TAB PO PRN (08:30)
[2024-02-25] MEDS: MELOXICAM 7.5 MG TAB PO PRN (08:30)
[2024-02-25] MEDS: LACTATED RINGERS 1,000 ML IV SCH (08:45)
[2024-02-25] MEDS: ONDANSETRON 4 MG/2 ML VIAL IVP ONE (08:46)
[2024-02-25] MEDS: DEXAMETHASONE SOD PHOSPHATE 4 MG/ML 1 ML VIAL IV ONE (08:46)
[2024-02-25 08:57] LABS: Glucose,Whole Blood 182 mg/dL (70-110)
[2024-02-25] MEDS: fentaNYL (PF) 50 MCG/ML 2 ML AMP IVP ONE (09:05)
[2024-02-25] MEDS: MIDAZOLAM 2 MG/2 ML VIAL IVP ONE (09:05)
[2024-02-25] MEDS ORDERED: MIDAZOLAM 2 MG/2 ML VIAL ONE (09:40)
[2024-02-25] MEDS ORDERED: ROPIVACAINE 5 MG/ML 30 ML VIAL ONE (09:40)
[2024-02-25] MEDS ORDERED: PROPOFOL 10 MG/ML 20 ML VIAL IV ONE (09:40)
[2024-02-25] MEDS ORDERED: SUCCINYLCHOLINE CHLORIDE 200 MG/10 ML VIAL IV ONE (09:40)
[2024-02-25] MEDS ORDERED: GLYCOPYRROLATE 0.2 MG/ML 2 ML VIAL ONE (09:40)
[2024-02-25] MEDS ORDERED: NEOSTIGMINE 1 MG/ML 10 ML VIAL ONE (09:40)
[2024-02-25] MEDS ORDERED: WATER FOR INJECTION, STERILE 10 ML VIAL IV ONE (09:40)
[2024-02-25] MEDS ORDERED: LIDOCAINE 1% INJ 10MG/ML (20 ML MDV) ONE (09:40)
[2024-02-25] MEDS ORDERED: TRANEXAMIC 1,000 MG/100ML-NACL PREMIX BAG ONE (09:40)
[2024-02-25] MEDS ORDERED: ePHEDrine 50 MG/ML 1 ML VIAL ONE (09:40)
[2024-02-25] MEDS ORDERED: PHENYLEPHRINE 10 MG/ML VIAL ONE (09:40)
[2024-02-25] MEDS ORDERED: ROCURONIUM 10 MG/ML (5 ML VIAL) IV ONE (09:40)
--- NOTE | 2024-02-25 09:48 | P.ANPRN ---
Procedure Note - Anesthesia - Nerve Block Performed Left Interscalene Single Time Out Performed: Yes ([id number]) Date of Procedure: 02/25/24 Procedure Start Time: : Procedure Stop Time: : Location of Patient: PreOp Indication: Acute Post-Operative Pain, Requested by Surgeon Specifically requested for management of pain by : Baron Hall Sedation Type: Sedate with meaningful contact maintained Preparation: Sterile Prep Position: Supine Catheter: None Needle Types: Pajunk Needle Gauge: 21 Ultrasound used to visualize needle placement: Yes Ultrasound used to observe medication spread: Yes Injectate: 0.5% Ropivacaine (see comment for volume) (30cc) Blood Aspirated: No Pain Paresthesia on Injection Noted: No Resistance on Injection: Normal Image Stored and Saved: Yes Events: Uneventful and Well Tolerated
[2024-02-25] MEDS: ceFAZolin 1,000 MG in SODIUM CHLORIDE 0.9% 1,000 ML IRRIGATION ONE (10:18)
[2024-02-25] MEDS: LACTATED RINGERS 1,000 ML IV ONE (10:33)
[2024-02-25] MEDS ORDERED: hydrOXYzine pamoate 25 MG CAP PO PRN (11:29)
[2024-02-25] MEDS ORDERED: HYDROmorphone 0.5 MG/0.5 ML SYRINGE IVP PRN ×2 (11:29)
[2024-02-25] MEDS ORDERED: SENNOSIDES-DOCUSATE SODIUM 1 EACH TAB PO PRN (11:29)
--- NOTE | 2024-02-25 11:48 | P.OP ---
Date of Procedure: 02/25/24 Preoperative Diagnosis: Left rotator cuff arthropathy/chronic retracted rotator cuff tear Postoperative Diagnosis: Same Procedure(s) Performed: Left reverse total shoulder arthroplasty Implants: Depuy Delta Xtend size 10 press-fit humeral stem, size 10 body, 36+12 articular surface, 36 mm standard glenosphere with standard baseplate. Anesthesia: mahesh QUINTERO Surgeon: Baron Hall Wood Inspector #1: Bryson Mckeon Estimated Blood Loss (ml): 150 Pathology: none sent Condition: stable Disposition: PACU Indications for Procedure: The patient is a 74-year-old male who presents with progressive left shoulder pain and weakness despite previous conservative measures. Clinically and by MRI he was noted to have significant rotator cuff deficiency. A discussion of the risks and benefits of operative intervention versus continued conservative measures was made with the patient. He opted to proceed with surgery. Operative risks include infection, neurovascular injury, development of blood clots, fracture, instability, possible component loosening/failure and need for subsequent procedures was discussed. Informed consent was obtained. Operative Findings: As below Description of Procedure: The patient was brought to the operating room, and after induction of general anesthesia was placed in a beachchair position. The bony prominences were appropriately padded. I examined the left shoulder. There was full passive forward elevation and external rotation. The left upper extremity was prepped and draped in normal fashion. The bony outlines the coracoid process, distal clavicle, and acromion were outlined with a skin marker. A pulse centimeter deltopectoral incision was made lateral to the coracoid process. Skin was incised sharply. Subcutaneous tissues were divided bluntly. Electrocautery was used for hemostasis. The cephalic vein was identified and gently retracted laterally with the deltoid. The deltopectoral was bluntly developed. Subdeltoid adhesions were then released. The self-retaining retractor was placed. The conjoined tendon was retracted medially and the deltoid laterally. The biceps was identified. Its sheath was opened. A biceps tenotomy was performed along the remaining tendon did retract distally. The subscapularis was peeled off the lesser tuberosity and tagged. The supraspinatus and infraspinatus as well as the teres minor were previously ruptured and retracted. The head was then exposed. The shoulder was dislocated. A starting hole was made in line with the humeral shaft. The canal was reamed by hand up to size 10. There was good distal chatter. The cutting guide was then placed. I planned on 20 of retroversion. The humeral head cut was then made. The bone was removed in one fragment. Residual inferomedial osteophytes were removed flush with the [place] cortical bone. Attention was then paid towards preparing the glenoid. An anterior and posterior retractors placed. The labrum was released from the 6-12 o'clock position. Remaining biceps was removed as well. A guidepin was placed in the inferior aspect of the glenoid with the guide slightly tilting inferior. The reamer was used down to a bleeding bony surface. The central peg hole was drilled. The standard baseplate was inserted with good purchase. Inferior, superior, and posterior locking screws the appropriate length were placed. Good purchase was obtained. The 36 mm glenosphere was inserted over a guidewire. This was fully seated. Care was taken to avoid any soft tissue interposition. Attention was then paid towards preparing the proximal humerus. The appropriate broach was placed and 20 of retroversion and was fully seated. An eccentric size 2 epiphyseal reamer was utilized. A size 10 stem with a size 10 body was placed and 20 of retroversion. Trial reduction was obtained with a 36 mm + 12 articular surface. The shoulder was taken through range of motion. The shoulder was felt to be stable in flexion and extension with internal and external rotation. I felt there was adequate sabianism of soft tissue tension judging off the conjoined tendon. The shoulder was gently dislocated. The trial components were then removed. The final size 10 press-fit stem along with a size 10 body was fully seated. There was good rotational stability. The 36 mm + 12 articular surface was impacted. The shoulder again was gently reduced and taken through range of motion. Again it was felt to be stable in all planes. Pulsatile lavage was utilized. The subscapularis was a attached to the lesser tuberosity with #2 Ethibond suture. The deltopectoral interval was closed with interrupted 2-0 Vicryl sutures. The skin was reapproximated with 3-0 subcuticular Prolene suture. Steri-Strips were applied. A sterile dressing was applied. A sling was placed. The patient was awoken from general anesthesia and transferred to recovery room in good condition. Blood loss was estimated at 150 mL. No complications were incurred. Sponge and needle counts were correct at the end the case. Bryson OSORIO assisted during the major components of the case to include exposure, glenoid and humeral preparation, implantation, and closure.
[2024-02-25 11:59] LABS: Glucose,Whole Blood 202 mg/dL (70-110)
--- NOTE | 2024-02-25 12:10 | XR ---
EXAMINATION TYPE: XR shoulder limited LT DATE OF EXAM: 02/25/2024 11:32 AM CLINICAL INDICATION:Male, 74 years old with history of s/p reverse left total shoulder arthroplasty; [facility] COMPARISON: None TECHNIQUE: XR shoulder limited LT; examined in AP, internally rotated and scapular Y projections. FINDINGS: Shoulder arthroplasty with hardware intact. Subcutaneous lucencies compatible with recent surgery. No evidence for fracture. Hardware appears in tact The remaining portions of the visualized chest are unremarkable. IMPRESSION: 1. No acute osseous pathology. 2. Shoulder arthroplasty changes with hardware intact.
[2024-02-25] MEDS: INSULIN ASPART (NovoLOG) 100 UNIT/ML VIAL SQ ONE (12:15)
[2024-02-25 16:30] LABS: Glucose,Whole Blood 206 mg/dL (70-110)
[2024-02-25 17:31] LABS: Basophils % (A) 0 %; Eosinophils % (A) 0 %; HCT 34.1 % (39.0-53.0); HGB 11.5 gm/dL (13.0-17.5); Lymphocytes # (A) 0.4 k/uL (1.0-4.8); Lymphocytes % (A) 4 %; MCH 33.4 pg (25.0-35.0); MCHC 33.7 g/dL (31.0-37.0); Monocytes # (A) 0.2 k/uL (0-1.0); Monocytes % (A) 2 %; Neutrophils # (A) 8.6 k/uL (1.3-7.7); Neutrophils % (A) 93 %; Platelet Count 190 k/uL (150-450); RBC 3.44 m/uL (4.30-5.90); RDW 13.1 % (11.5-15.5); WBC 9.3 k/uL (3.8-10.6)
[2024-02-25] MEDS: metFORMIN 500 MG TAB PO SCH (20:20)
[2024-02-25] MEDS: ATORVASTATIN 10 MG TAB PO SCH (20:20)
[2024-02-25 20:23] LABS: Glucose,Whole Blood 284 mg/dL (70-110)
[2024-02-26] MEDS: HYDROcodone/APAP 5-325MG 1 EACH TAB PO PRN ×2 (01:37→06:58)
[2024-02-26 06:11] LABS: Glucose,Whole Blood 155 mg/dL (70-110)
[2024-02-26] MEDS: PANTOPRAZOLE 40 MG TABLET PO SCH (06:59)
[2024-02-26 07:56] VITALS: BP 109/54; PULSE 72; RESP 16; TEMP 97.4
[2024-02-26] MEDS ORDERED: NON FORMULARY DRUG (Brexpiprazole [Rexulti] 0.5 MG Tablet) PO SCH (09:00)
--- NOTE | 2024-02-26 09:33 | P.DS ---
Providers Date of admission: 02/25/2024 Expected date of discharge: 02/26/24 Attending physician: Baron Hall Consults: 02/25/24 11:29 Consult Physician Routine Consulting Provider: Breezy Gaviria Consult Reason/Comments: Medical management status post reverse left total shoulder arthroplasty Do you want consulting provider notified?: Yes Primary care physician: Mclean Hospital Course: Date of admission: 02/25/2024 Date of discharge: 02/26/2024 Admission diagnosis: Left rotator cuff arthropathy/chronic retracted rotator cuff tear Discharge diagnosis: Same Attending physician: Dr. Hall Surgical procedures: Reverse left total shoulder arthroplasty Brief history: Patient is a 74-year-old male with a history of Left rotator cuff arthropathy/chronic retracted rotator cuff tear. At this point patient has failed conservative treatment measures and has opted to proceed with a elective reverse left total shoulder arthroplasty. Hospital course: Details of patient's surgery can be found in operative report. Patient tolerated the procedure well and was subsequently transported to orthopedic floor. Patient's orthopeidc and medical care was provided daily. Patient had daily laboratory tests performed for evaluation of overall blood counts. Patient had daily physical therapy to include strengthening range of mo tion as well as education with walker ambulation. Patient was treated with Xarelto for their postoperative DVT prophylaxis during their inpatient stay. Patient was noted to have a relatively uneventful postoperative course. Patient reported satisfactory pain control with oral pain medications by postoperative day 1. Patient showed satisfactory progress with physical therapy. Patient moved steadily through the program and had no difficulty meeting the goals by postoperative day 1. Given patient's otherwise satisfactory course and having met physical therapy goals, plan is to discharge patient home on postoperative day 1. Discharge condition/disposition: Patient will be discharged home in stable condition. Discharge medications: Instructions are given on resumption of patient's normal daily medications per primary care recommendation, in addition patient will be prescribed [place]; senna; Flomax; resume Xarelto at home. Orthopedic Discharge Instructions: 1. Wound care and infection precautions, keep incision dry and covered while showering, no lotions, creams, moisturizers. No soaking, pools, hot tubs. Do not scrub over incision. 2. Non-weight bearing left upper extremity. 3. Ice when necessary. Do not exceed 20 minutes per hour with ice pack. 4. Utilize sling to left upper extremity until seen at first follow up appointment. 5. Pain meds and anticoagulants per prescription. 6. Pain medication has potential to cause constipation. Increase oral fluid and fiber intake. Contact primary care provider if you have not had a bowel movement within 48 hours after discharge. 7. No anti-inflammatory medication until discussed at first post operative visit, this including Motrin, Aleve, Mobic, Diclofenac. 8. Follow up in office at 2 weeks postop with Dean Ulloa PA-C / Bryson Mckeon PA-C 9. Follow up with your primary care doctor 7-10 days after discharge. 10. Contact [facility] with any questions, . Keep incision clean, dry, intact. While showering, cover incision with Saran wrap. Keep steri-strips on until follow-up appointment in office in 2 weeks. Assessment: Left rotator cuff arthropathy/chronic retracted rotator cuff tear Procedures: Reverse left total shoulder arthroplasty Patient Condition at Discharge: Good Plan - Discharge Summary Discharge Rx Participant: No New Discharge Prescriptions: New Tamsulosin HCl [Flomax] 0.4 mg PO DAILY #10 capsule Sennosides/Docusate Sodium [Senna Plus 8.6-50 mg Softgel] 1 each PO DAILY #20 capsule HYDROcodone/APAP 5-325MG [[place] 5-325] 1 tab PO Q6HR PRN #28 tab PRN Reason: Pain Continue Rivaroxaban [Xarelto] 20 mg PO DAILY No Action Cholecalciferol [Vitamin D3 (25 Mcg = 1000 Iu)] 75 mcg PO Q7D Simvastatin [Zocor] 20 mg PO HS Omeprazole [PriLOSEC] 20 mg PO AC-BRKFST Bisoprolol-Hctz 2.5-6.25 mg [Ziac 2.5-6.25 MG] 1 tab PO DAILY metFORMIN HCL 500 mg PO BID hydroCHLOROthiazide 25 mg PO DAILY buPROPion XL [Wellbutrin XL] 300 mg PO DAILY Meloxicam [Mobic] 0 mg PO DIRECTED PRN PRN Reason: Pain Brexpiprazole [Rexulti] 0.5 mg PO DAILY rOPINIRole HCL [Requip] 3 mg PO HS Sertraline [Zoloft] 150 mg PO DAILY Discharge Medication List Bisoprolol-Hctz 2.5-6.25 mg [Ziac 2.5-6.25 MG] 1 tab PO DAILY 02/21/24 [History] Brexpiprazole [Rexulti] 0.5 mg PO DAILY 02/21/24 [History] Cholecalciferol [Vitamin D3 (25 Mcg = 1000 Iu)] 75 mcg PO Q7D 02/21/24 [History] Meloxicam [Mobic] 0 mg PO DIRECTED PRN 02/21/24 [History] Omeprazole [PriLOSEC] 20 mg PO AC-BRKFST 02/21/24 [History] Rivaroxaban [Xarelto] 20 mg PO DAILY 02/21/24 [History] Sertraline [Zoloft] 150 mg PO DAILY 02/21/24 [History] Simvastatin [Zocor] 20 mg PO HS 02/21/24 [History] buPROPion XL [Wellbutrin XL] 300 mg PO DAILY 02/21/24 [History] hydroCHLOROthiazide 25 mg PO DAILY 02/21/24 [History] metFORMIN HCL 500 mg PO BID 02/21/24 [History] rOPINIRole HCL [Requip] 3 mg PO HS 02/21/24 [History] HYDROcodone/APAP 5-325MG [[place] 5-325] 1 tab PO Q6HR PRN #28 tab 02/26/24 [Rx] Sennosides/Docusate Sodium [Senna Plus 8.6-50 mg Softgel] 1 each PO DAILY #20 capsule 02/26/24 [Rx] Tamsulosin HCl [Flomax] 0.4 mg PO DAILY #10 capsule 02/26/24 [Rx] Follow up Appointment(s)/Referral(s): Bryson Mckeon, MAYDA [PHYSICIAN FABRIC INSPECTOR] - 2 Weeks Activity/Diet/Wound Care/Special Instructions: Orthopedic Discharge Instructions: 1. Wound care and infection precautions, keep incision dry and covered while showering, no lotions, creams, moisturizers. No soaking, pools, hot tubs. Do not scrub over incision. 2. Non-weight bearing left upper extremity. 3. Ice when necessary. Do not exceed 20 minutes per hour with ice pack. 4. Utilize sling to left upper extremity until seen at first follow up appointment. 5. Pain meds and anticoagulants per prescription. 6. Pain medication has potential to cause constipation. Increase oral fluid and fiber intake. Contact primary care provider if you have not had a bowel movement within 48 hours after discharge. 7. No anti-inflammatory medication until discussed at first post operative visit, this including Motrin, Aleve, Mobic, Diclofenac. 8. Follow up in office at 2 weeks postop with Dean Ulloa PA-C / Bryson Mckeon PA-C 9. Follow up with your primary care doctor 7-10 days after discharge. 10. Contact [facility] with any questions, . Keep incision clean, dry, intact. While showering, cover incision with Saran wrap. Keep steri-strips on until follow-up appointment in office in 2 weeks. Discharge Disposition: HOME SELF-CARE
--- NOTE | 2024-02-26 09:37 | P.PN ---
Subjective Progress Note Date: 02/26/24 Principal diagnosis: Left rotator cuff arthropathy/chronic retracted rotator cuff tear Patient was seen at bedside this morning lying; position with dressing present over left shoulder and sling present to the left upper extremity. was present during encounter. Johnston was in place. Patient says he is looking forward to going home later today. Patient says he has urinated without the Johnston however nursing put a Johnston in earlier this morning. Patient says the pain has been under control. Patient says his will be able to help him out at home. Patient says he has not had a bowel yet, however, patient says he has been passing gas. Patient denies chest pain, fever, shortness of breath, nausea, vomiting, change in vision, loss of bowel/bladder control. Objective - Vital Signs Vital signs: Vital Signs Temp 97.4 F L 02/26/24 07:35 Pulse 72 02/26/24 07:35 Resp 16 02/26/24 07:35 BP 109/54 02/26/24 07:35 Pulse Ox 97 02/26/24 07:35 FiO2 Intake & Output 02/25/24 02/26/24 02/26/24 18:59 06:59 18:59 Intake Total 1751 Output Total 1550 950 Balance 201 -950 Weight 84.2 kg Intake: IV 1751 Output: Urine 1400 950 Straight 700 Estimated Blood Loss 150 Other: # Voids 2 - Exam Left shoulder: Incision is clean, dry, and intact. Sling present to left upper extremity. The bulky dressing is in good condition. There is minimal soft tissue swelling and ecchymosis surrounding the medial and lateral aspects of the incision. Calf is soft, no tenderness with palpation. Plantar flexion, dorsiflexion, EHL, FHL are intact. Sensory exam to light touch throughout the extremity is intact, dorsal pedis pulses 2+. - Labs CBC & Chem 7: 02/25/24 16:55 Labs: Abnormal Lab Results - Last 24 Hours (Table) 02/25/24 02/25/24 02/25/24 Range/Units 11:57 16:29 16:55 RBC 3.44 L (4.30-5.90) m/uL Hgb 11.5 L (13.0-17.5) gm/dL Hct 34.1 L (39.0-53.0) % Neutrophils # 8.6 H (1.3-7.7) k/uL Lymphocytes # 0.4 L (1.0-4.8) k/uL POC Glucose (mg/dL) 202 H 206 H (70-110) mg/dL 02/25/24 02/26/24 Range/Units 20:21 06:06 RBC (4.30-5.90) m/uL Hgb (13.0-17.5) gm/dL Hct (39.0-53.0) % Neutrophils # (1.3-7.7) k/uL Lymphocytes # (1.0-4.8) k/uL POC Glucose (mg/dL) 284 H 155 H (70-110) mg/dL Assessment and Plan Assessment: 1. Left rotator cuff arthropathy/chronic retracted rotator cuff tear -Postop day 1 status post reverse left total shoulder arthroplasty Plan: 1. Left rotator cuff arthropathy/chronic retracted rotator cuff tear -reverse left total shoulder arthroplasty performed yesterday, 02/25/2024. Patient stable at bedside this morning. Pain medication as needed. Nonweightbearing to the left upper extremity. Maintain sling and left upper extremity at all times. Sending home with Flomax. discharge home today 2. Appreciate medical management 3. Pain management -[place] 4. DVT prophylaxis -Xarelto 5. GI prophylaxis -senna 6. PT/OT -nonweightbearing left upper extremity. Maintain in sling. Okay to flex and extend left wrist and elbow. 7. Encourage incentive spirometer use 8. Discharge planning -home today Time with Patient: Less than 30
--- NOTE | 2024-02-26 10:24 | P.CONS ---
History of Present Illness - Reason for Consult Consult date: 02/26/24 Past Medical History Past Medical History: Diabetes Mellitus, Deep Vein Thrombosis (DVT), Hyperlipidemia, Hypertension History of Any Multi-Drug Resistant Organisms: None Reported Past Surgical History: Adenoidectomy, Appendectomy, Back Surgery, Heart Catheter ization, Tonsillectomy Additional Past Surgical History / Comment(s): laminectomy Past Anesthesia/Blood Transfusion Reactions: No Reported Reaction Past Psychological History: Anxiety, Depression Smoking Status: Never smoker Past Alcohol Use History: None Reported Past Drug Use History: None Reported - Past Family History Mother Family Medical History: No Reported History Medications and Allergies Home Medications Medication Instructions Recorded Confirmed Type Bisoprolol-Hctz 2.5-6.25 mg [Ziac 1 tab PO DAILY 02/21/24 02/25/24 History 2.5-6.25 MG] Brexpiprazole [Rexulti] 0.5 mg PO DAILY 02/21/24 02/25/24 History Cholecalciferol [Vitamin D3 (25 75 mcg PO Q7D 02/21/24 02/25/24 History Mcg = 1000 Iu)] Meloxicam [Mobic] 0 mg PO DIRECTED PRN 02/21/24 02/25/24 History Omeprazole [PriLOSEC] 20 mg PO AC-BRKFST 02/21/24 02/25/24 History Rivaroxaban [Xarelto] 20 mg PO DAILY 02/21/24 02/25/24 History Sertraline [Zoloft] 150 mg PO DAILY 02/21/24 02/25/24 History Simvastatin [Zocor] 20 mg PO HS 02/21/24 02/25/24 History buPROPion XL [Wellbutrin XL] 300 mg PO DAILY 02/21/24 02/25/24 History hydroCHLOROthiazide 25 mg PO DAILY 02/21/24 02/25/24 History metFORMIN HCL 500 mg PO BID 02/21/24 02/25/24 History rOPINIRole HCL [Requip] 3 mg PO HS 02/21/24 02/25/24 History HYDROcodone/APAP 5-325MG [[place] 1 tab PO Q6HR PRN #28 tab 02/26/24 Rx 5-325] Sennosides/Docusate Sodium [Senna 1 each PO DAILY #20 capsule 05/18/24 Rx Plus 8.6-50 mg Softgel] Tamsulosin HCl [Flomax] 0.4 mg PO DAILY #10 capsule 02/26/24 Rx Allergies Allergy/AdvReac Type Severity Reaction Status Date / Time Penicillins Allergy Unknown Verified 02/25/24 08:24 Childhood Physical Exam Vitals: Vital Signs Temp Pulse Resp BP Pulse Ox 02/26/24 07:35 97.4 F L 72 16 109/54 97 02/26/24 01:58 98.1 F 73 18 103/65 95 02/25/24 18:30 97.8 F 68 20 94/51 95 02/25/24 14:51 98.1 F 69 16 116/67 98 02/25/24 14:00 59 L 16 106/60 94 L 02/25/24 13:30 62 16 107/62 94 L 02/25/24 13:00 58 L 16 114/63 94 L 02/25/24 12:45 61 16 112/64 94 L 02/25/24 12:30 64 16 113/67 94 L 02/25/24 12:15 68 16 128/66 100 02/25/24 12:00 71 16 131/71 100 02/25/24 11:48 97 F L 78 16 129/67 98 Intake and Output 02/25/24 02/26/24 02/26/24 22:59 06:59 14:59 Output Total 1400 950 Balance -1400 -950 Output: Urine 1400 950 Straight 700 Other: # Voids 2 Weight 84.2 kg Results CBC & Chem 7: 02/25/24 16:55 Labs: Abnormal Lab Results - Last 24 Hours (Table) 02/25/24 02/25/24 02/25/24 Range/Units 11:57 16:29 16:55 RBC 3.44 L (4.30-5.90) m/uL Hgb 11.5 L (13.0-17.5) gm/dL Hct 34.1 L (39.0-53.0) % Neutrophils # 8.6 H (1.3-7.7) k/uL Lymphocytes # 0.4 L (1.0-4.8) k/uL POC Glucose (mg/dL) 202 H 206 H (70-110) mg/dL 02/25/24 02/26/24 Range/Units 20:21 06:06 RBC (4.30-5.90) m/uL Hgb (13.0-17.5) gm/dL Hct (39.0-53.0) % Neutrophils # (1.3-7.7) k/uL Lymphocytes # (1.0-4.8) k/uL POC Glucose (mg/dL) 284 H 155 H (70-110) mg/dL
[2024-02-26] MEDS: TAMSULOSIN 0.4 MG CAP.ER.24H PO SCH (10:52)
[2024-02-26] MEDS: SERTRALINE 50 MG TAB PO SCH (10:52)
[2024-02-26] MEDS: buPROPion XL 300 MG TAB.ER.24H PO SCH (10:52)
[2024-02-26] MEDS: RIVAROXABAN 20 MG TAB PO SCH (10:52)
[2024-02-26 11:06] LABS: Glucose,Whole Blood 285 mg/dL (70-110)
[2024-02-26] MEDS ORDERED: TAMSULOSIN 0.4 MG CAP.ER.24H PO SCH (18:30)
== END 2024-02-26 12:18 | disposition home or self-care (01) ==
LOC: OR 07:44 → 4SSUR 11:38 → OR 02-26 12:18
PROVIDERS: ATTEND Orthopaedic Surgery
DX: M75.102 Unspecified rotator cuff tear or rupture of left shoulder, not specified as traumatic (principal); M25.712 Osteophyte, left shoulder; I10 Essential (primary) hypertension; E78.5 Hyperlipidemia, unspecified; E11.9 Type 2 diabetes mellitus without complications; F41.9 Anxiety disorder, unspecified; F32.A Depression, unspecified; Z79.01 Long term (current) use of anticoagulants; Z86.73 Personal history of transient ischemic attack (TIA), and cerebral infarction without residual deficits; Z90.49 Acquired absence of other specified parts of digestive tract; Z90.89 Acquired absence of other organs; Z95.5 Presence of coronary angioplasty implant and graft; Z79.84 Long term (current) use of oral hypoglycemic drugs; Z79.899 Other long term (current) drug therapy; Z98.890 Other specified postprocedural states
CPT/HCPCS: 85025; 73020; 23472; 64415; J2250; J1100; J0690 ×3; J2405; J3010

== ENCOUNTER → 2025-04-02 | Outpatient (CLI) | payer MEDICARE ==
[2025-04-02 15:16] LABS: Basophils # (A) 0.07 X 10*3/uL (0.00-0.10); Basophils % (A) 1.1 %; Eosinophils # (A) 0.49 X 10*3/uL (0.04-0.35); HCT 33.4 % (39.6-50.0); HGB 11.2 g/dL (13.0-17.0); Lymphocytes # (A) 1.32 X 10*3/uL (0.90-5.00); Lymphocytes % (A) 21.6 %; MCH 32.9 pg (27.0-32.0); MCHC 33.5 g/dL (32.0-37.0); MCV 98.2 FL (80.0-97.0); Monocytes # (A) 0.42 X 10*3/uL (0.20-1.00); Monocytes % (A) 6.9 %; NRBC Per 100 WBC 0 X 10*3/uL (0.00-0.01); Neutrophils # (A) 3.78 X 10*3/uL (1.80-7.70); Neutrophils % (A) 61.7 %; Platelet Count 194 X 10*3/uL (140-440); RDW 13.4 % (11.5-14.5); WBC 6.12 X 10*3/uL (4.50-10.00)
== END | disposition home or self-care (01) ==
LOC: LABWHC1 09:38
PROVIDERS: ATTEND Nurse Practitioner Family
DX: D50.9 Iron deficiency anemia, unspecified (principal)
CPT/HCPCS: 36415; 85025